=== PATIENT | male | born 1945 | race Caucasian/White ===

== ENCOUNTER 2024-11-21 17:14 | Emergency (ER) | payer MEDICARE, BC ==
[2024-11-21] MEDS ORDERED: Naloxone 0.4 MG/ML SDV IVPUSH PRN (17:29)
[2024-11-21] MEDS: HYDROmorphone 0.5 MG/0.5 ML Syringe IVPUSH ONE ×4 (17:50→22:37)
[2024-11-21 18:52] LABS: BASOPHILS ABSOLUTE AUTO 0.17 K/uL (0.00-0.10); BASOPHILS PERCENT AUTO 0.6 % (0.1-1.3); EOSINOPHILS PERCENT AUTO 0.4 % (0.0-5.4); HEMATOCRIT 37.3 % (38.4-49.7); HEMOGLOBIN 12.6 g/dL (12.9-16.9); IMMATURE GRAN ABSOLUTE AUTO 0.33 K/uL (0.00-0.23); IMMATURE GRAN PERCENT AUTO 1.3 % (0.0-0.7); LYMPHOCYTES ABSOLUTE AUTO 3.98 K/uL (0.8-3.3); LYMPHOCYTES PERCENT AUTO 15.1 % (11.4-47.7); MEAN CORPUSCULAR HEMOGLOBIN 33.9 pg (31.6-35.5); MEAN CORPUSCULAR HGB CONC 33.8 g/dL (31.6-35.5); MEAN CORPUSCULAR VOLUME 100.3 fL (81.4-99.0); MONOCYTES ABSOLUTE AUTO 1.23 K/uL (0.20-0.90); MONOCYTES PERCENT AUTO 4.7 % (3.3-12.6); NEUTROPHILS ABSOLUTE AUTO 20.51 K/uL (1.0-7.6); NEUTROPHILS PERCENT AUTO 77.9 % (40.0-78.1); PLATELET COUNT,PLT 200 K/uL (130-375); RED BLOOD CELL COUNT 3.72 M/uL (4.14-5.76); WHITE BLOOD CELL COUNT,WBC 26.3 K/uL (3.2-11.0)
[2024-11-21] MEDS: Ondansetron 4 MG/2 ML SDV IVPUSH ONE (18:52)
[2024-11-21 19:12] LABS: INR 1.1; PROTHROMBIN TIME 11.4 sec (9.2-10.6); PTT,PARTIAL THROMBOPLSTIN TIME 24.6 sec (21.8-27.3)
[2024-11-21 19:13] LABS: ALANINE AMINOTRANSFERASE,ALT 28 U/L (12-78); ALBUMIN 3.5 g/dL (3.4-5.0); ALKALINE PHOSPHATASE 72 U/L (46-116); ANION GAP 18.8 mmol/L (5.0-14.0); ASPARTATE AMNIOTRANSFERASE,AST 22 U/L (15-37); BILIRUBIN TOTAL 0.4 mg/dL (0.2-1.0); BLOOD UREA NITROGEN,BUN 21 mg/dL (7-18); CALCIUM 9.1 mg/dL (8.5-10.1); CARBON DIOXIDE,CO2 23 mmol/L (21-32); CHLORIDE,CL 99 mmol/L (100-108); CREATININE 1.6 mg/dL (0.8-1.3); EST CRCL DRUG DOSING (CG) 34.34 mL/min; ESTIMATED GFR 44 mL/min (>60); GLUCOSE RANDOM 162 mg/dL (74-106); POTASSIUM,K 3.8 mmol/L (3.6-5.2); PROTEIN TOTAL,TP 7.1 g/dL (6.4-8.2); SODIUM,NA 137 mmol/L (140-148)
[2024-11-21] MEDS: Sodium Chloride 0.9% 1,000 ML IV SCH (21:00)
== END 2024-11-21 23:49 ==
LOC: JP.ED 17:14
DX: S42.202A Unspecified fracture of upper end of left humerus, initial encounter for closed fracture (principal); I95.2 Hypotension due to drugs; I10 Essential (primary) hypertension; Z79.02 Long term (current) use of antithrombotics/antiplatelets; Z79.899 Other long term (current) drug therapy
CPT/HCPCS: 36415; 73030; 73200; 76377; 80053; 85025; 85610; 85730; 93005; 96361; 96374; 96375; 96376; 99285; J2405; J7030